=== PATIENT | female | born 1985 | race Caucasian/White ===

== ENCOUNTER 2022-07-04 08:18 | Outpatient (CLI) | payer OTHER, SELFPAY ==
[2022-07-04 08:43] LABS: Hematocrit 28.8 % (37.0-47.0); Hemoglobin 8.7 g/dL (12.0-15.0)
== END 2022-07-04 08:19 | disposition home or self-care (01) ==
LOC: ANHSURGERY 08:26
PROVIDERS: Anesthesiology; PCP Family Medicine; Visit Provider Obstetrics & Gynecology Gynecology
DX: D64.9 Anemia, unspecified (principal); Z01.818 Encounter for other preprocedural examination
CPT/HCPCS: 36415; 85014; 85018

== ENCOUNTER 2022-07-16 02:01 | Day surgery (SDC) | payer OTHER, SELFPAY ==
[2022-07-03 15:51] VITALS: BMI 41.0
--- NOTE | 2022-07-03 16:01 | PC.NURSE ---
Report to the Outpatient Waiting Room, entrance under the green pavilion located off [facility], at time 7:00 on date 07/16/22. Planned Procedure Time: 9:00. Time changes happen often and if your time is changed the preop area will call you the afternoon before. - You and your visitor will be asked to self-screen and do not enter if you have any COVID symptoms. - Only one visitor is requested with a max of two and NO children visitors are allowed at this time. - The patient visitor may be requested to leave or wait in car when not with patient due to distancing restrictions. - A mask is optional within the hospital at this time. Patients may have clear liquids (water, carbonated beverages, clear teas, apple juice) until 3 hours prior to surgery with a maximum of 20 ounces. - No food from midnight until time of surgery Take the following medications with a SIP of water the morning of surgery: ACYCLOVIR, INHALERS, BUSPIRONE, LEVOTHYROXINE, SERTRALINE DO NOT STOP ANY OF YOUR OTHER PRESCRIPTION MEDICATIONS PRIOR TO SURGERY EXCEPT THE FOLLOWING Medications to discontinue per physician: VITAMINS/SUPPLEMENTS Date to take last dose: 07/12/[address] SMITH REGARDING ASPIRIN AND XARELTO Please no make-up, nail greek, hairspray, perfume, deodorant, or body powder the day of surgery. No jewelry (including any body piercings) or valuables the day of surgery, leave them at home. Please take a shower or bath the night before, or the morning of, surgery with an antibacterial soap. Wear comfortable, loose fitting clothing. - Jewelry must be removed prior to entering the operating room. Rings and piercings that are not removed may be cut off. - The hospital will not accept responsibility for valuables. - Please leave all valuables, including medications, at home the day of surgery. If you are going home after surgery, a licensed driver/guide must drive you home. - NO public transportation without another adult if you receive anesthesia. - We recommend that an adult stay with you for 24 hours following discharge. - We also recommend that you do not drive, make important decision, drink alcoholic beverages, or take any drugs that were not prescribed by your health care provider for at least 24 hours after your discharge time. Follow any additional instructions given to you from your surgeon. If you or anyone in your household have experienced Covid symptoms in the past week, please notify your surgeon or the nurse liaison at the phone number below for possible testing. Telephone instructions given to SETH LANDRY and asked if any additional questions and then verbalized understanding. Patient advised to call surgeon office or pre surgery nurse liaison [phone] if any additional questions.
[2022-07-16 07:03] VITALS: BP 116/77; PULSE 79; RESP 16; TEMP 36.7; O2SAT 99
[2022-07-16] MEDS: LACTATED RINGERS 1,000 ML 30 ML IV CONT (07:15)
[2022-07-16] MEDS: ACETAMINOPHEN 500 MG TABLET 1000 MG PO (07:18)
--- NOTE | 2022-07-16 07:35 | WPDHPUPDATE1 ---
History and Physical Update Update Date/Time: 07/16/22 07:35 History and Physical has been reviewed, including an updated exam of the patient. There are NO changes in the patient's condition. Risks, benefits, and alternatives have been discussed and questions answered. Patient agrees to proceed with procedure.
--- NOTE | 2022-07-16 07:35 | PM.HPGS ---
History of Present Illness History of Present Illness Consent: Risks, benefits, and alternatives have been discussed and questions answered. Patient agrees to proceed with procedure. Chief complaint: Menorrhagia Narrative: Mary Velasquez is a 37 year old female patient with heavy menstrual cycles. Both brands of progesterone only pills were not successful in controlling the bleeding. Bleeding problems began when the patient started on blood thinners secondary to a stroke. It was recommended to proceed with D&C hysteroscopy to evaluate the endometrium. Risks of infection, bleeding, perforation, and possible pathology are reviewed. Patient voices understanding and agrees to proceed. Review of Systems Review of Systems: not repeated day of surgery; patient states no changes in status [facility] Past Medical History Medical History (Updated 07/16/22 @ 07:41 by Nancy Sawant MD) Anxiety Asthma Factor 5 Leiden mutation, heterozygous History of depressed bipolar disorder Hypothyroid (normal spontaneous vaginal delivery) complicated by gestational diabetes insulin requiring Patent foramen ovale Stroke Surgical History Surgical History (Updated 07/16/22 @ 07:40 by Nancy Sawant MD) History of hysteroscopy 2020 benign History of laparoscopic cholecystectomy History of tonsillectomy Social History Social History Smoking status: Never smoker Alcohol intake: never Substance use: never Substance use type: does not use Living arrangements: with family Spiritual care concerns: No Meds Home Medications and Allergies Home Medications Medication Instructions Recorded Confirmed Type acyclovir 400 mg tablet 400 mg PO BID 07/03/22 07/16/22 History albuterol sulfate 90 mcg/actuation 2 inh inhalation Q4H PRN 07/03/22 07/16/22 History aerosol inhaler Bronchospasm aspirin 81 mg chewable tablet 81 mg PO DAILY 07/03/22 07/16/22 History atorvastatin 40 mg tablet 40 mg PO HS 07/03/22 07/16/22 History budesonide-formoterol HFA 80 2 inh inhalation BID 07/03/22 07/16/22 History mcg-4.5 mcg/actuation aerosol inhaler (Symbicort) buspirone 10 mg tablet 10 mg PO BID 07/03/22 07/16/22 History ferrous sulfate 325 mg (65 mg 325 mg PO DAILY 07/03/22 07/16/22 History iron) tablet (Iron (ferrous sulfate)) levothyroxine 25 mcg tablet 25 mcg PO DAILY 07/03/22 07/16/22 History rivaroxaban 20 mg tablet (Xarelto) 20 mg PO DAILY 07/03/22 07/16/22 History sertraline 25 mg tablet 25 mg PO DAILY 07/03/22 07/16/22 History Allergies Allergy/AdvReac Type Severity Reaction Status Date / Time lamotrigine Allergy Intermediate hives Verified 07/16/22 07:32 Estrogens AdvReac Other Verified 07/16/22 07:32 Exam Const: General: healthy appearing and alert Orientation/consciousness: patient oriented x3 Resp: Effort & Inspection: normal respiratory effort GI: GI Palp: Yes Soft to palpation, No Tenderness to palpation present (GI) and No Palpable mass present : External Female Exam: normal external appearance Speculum Exam - Vagina: normal appearance of the vagina and normal vaginal discharge Speculum Exam - Cervix: normal appearance of the cervix Bimanual exam- vagina & uterus: uterine size normal and consistency normal Bimanual Exam- Adnexa, other: normal adnexae and No adnexal tenderness Neuro: General: patient oriented x3 Assessment and Plan Assessment and plan (1) Menorrhagia: Code(s): N92.0 - Excessive and frequent menstruation with regular cycle Status: Acute Assessment and Plan: plan to proceed with D&C hysteroscopy
[2022-07-16 07:55] LABS: Beta HCG Quantitative < 2.39 mIU/ML
--- NOTE | 2022-07-16 08:28 | WPDANESEPPF ---
Anes - Initial Pre Proc Eval Procedure: Operation Date: 07/16/22 09:00 Proposed Procedures p Hysteroscopy Dilation and Curettage - Nancy Sawant MD Date/Time: 07/16/22 08:28 Surgeon: Nancy Sawant MD Pre Op Diagnosis: Menorrhagia Patient Data Age: 37 Gender: F Height: 1.75 m Weight: 116.8 kg Last Vital Signs Temp 36.7 C 07/16/22 07:03 Pulse 79 07/16/22 07:03 Resp 16 07/16/22 07:03 BP 116/77 07/16/22 07:03 Pulse Ox 99 07/16/22 07:03 O2 Del Method Room Air 07/16/22 07:03 Allergies Allergy/AdvReac Type Severity Reaction Status Date / Time lamotrigine Allergy Intermediate hives Verified 07/16/22 07:32 Estrogens AdvReac Other Verified 07/16/22 07:32 Home Medications Medication Instructions Recorded Confirmed Type acyclovir 400 mg tablet 400 mg PO BID 07/03/22 07/16/22 History albuterol sulfate 90 mcg/actuation 2 inh inhalation Q4H PRN 07/03/22 07/16/22 History aerosol inhaler Bronchospasm aspirin 81 mg chewable tablet 81 mg PO DAILY 07/03/22 07/16/22 History atorvastatin 40 mg tablet 40 mg PO HS 07/03/22 07/16/22 History budesonide-formoterol HFA 80 2 inh inhalation BID 07/03/22 07/16/22 History mcg-4.5 mcg/actuation aerosol inhaler (Symbicort) buspirone 10 mg tablet 10 mg PO BID 07/03/22 07/16/22 History ferrous sulfate 325 mg (65 mg 325 mg PO DAILY 07/03/22 07/16/22 History iron) tablet (Iron (ferrous sulfate)) levothyroxine 25 mcg tablet 25 mcg PO DAILY 07/03/22 07/16/22 History rivaroxaban 20 mg tablet (Xarelto) 20 mg PO DAILY 07/03/22 07/16/22 History sertraline 25 mg tablet 25 mg PO DAILY 07/03/22 07/16/22 History Laboratory Tests 07/16/22 07:17 Beta HCG, Quant < 2.39 mIU/ML mIU/ML Patient hx anesthesia problems: none Family hx anesthesia problems: none Results Review: All pre-operative results and documents have been reviewed as part of the pre-operative evaluation. [facility] Past Medical History Medical History Anxiety Asthma Factor 5 Leiden mutation, heterozygous History of depressed bipolar disorder Hypothyroid (normal spontaneous vaginal delivery) complicated by gestational diabetes insulin requiring Patent foramen ovale Stroke Surgical History Surgical History History of hysteroscopy 2020 benign History of laparoscopic cholecystectomy History of tonsillectomy Social History Social History Smoking status: Never smoker Alcohol intake: never Substance use: never Substance use type: does not use Living arrangements: with family Spiritual care concerns: No Anes - Eval Final PreProcedure Day of Procedure 07/16/22 08:28 Patient weight: obese Heart: regular rate and rhythm Lungs: clear to auscultation Airway: Mallampati scale class II Neurological: hemiparesis Last oral intake: >/= 8 hours ASA classification: III Emergent: no Anesthetic plan: proceed Anesthesia type and monitoring: general GIVS and standard monitoring Results Review: All pre-operative results and documents have been reviewed as part of the pre-operative evaluation. Informed Consent: The patient's anesthetic plan and its attendant risks and benefits were discussed with the patient/family/POA. Questions were solicited and answers provided to the satisfaction of the patient/family/POA.
[2022-07-16] MEDS: LIDOCAINE HCL 1% LOCAL INJ 20 ML VIAL INFILTRATE (09:26)
--- NOTE | 2022-07-16 09:36 | W.PM.PROC2 ---
Procedure Note - Detailed Date of Procedure 07/16/22 Pre-op Diagnosis Menorrhagia Post-op Diagnosis Same Procedure Performed D&C hysteroscopy Surgeon Nancy Swaant MD Anesthesia MAC and Local Findings uterus sounds to 10cm and appears grossly Description of Procedure The patient is taken to the operating room and placed under anesthesia in the dorsal lithotomy position. She was prepped and draped in usual sterile fashion. The bivalve speculum was placed in the vagina and the cervix grasped on the anterior lip with a tenaculum. The uterus sounded to 10cm. The hysteroscope was placed with the above-stated findings. With no abnormalities noted the hysteroscope was removed. The sharp curette is used to curette the endometrium until a good uterine cry was noted in all areas. All instruments were then removed. Sponge, needle, and instrument counts are correct per the OR staff. The patient is awakened from anesthesia and taken to recovery in stable condition. Estimated Blood Loss 5 Drains No Packing No Pathology Yes ( Endometrial curettings) Complications No immediate complications Condition Stable Disposition PACU
[2022-07-16 09:42] VITALS: BP 120/87; PULSE 87; RESP 12; O2SAT 93
[2022-07-16 10:10] VITALS: BP 110/69; PULSE 75; RESP 14; O2SAT 99
[2022-07-16] MEDS: oxyCODONE HCL (*CRX) 5 MG TAB IR PO (10:26)
[2022-07-16 10:40] VITALS: BP 107/70; PULSE 72; RESP 14
== END 2022-07-16 10:59 | disposition home or self-care (01) ==
PROVIDERS: Anesthesiology; PCP Family Medicine; Visit Provider Obstetrics & Gynecology Gynecology
PROC: 0U5B8ZZ Destruction of Endometrium, Via Natural or Artificial Opening Endoscopic (ICD-10-PCS; CPT 58563; principal; 2022-07-16 09:00)
DX: N92.0 Excessive and frequent menstruation with regular cycle (principal); D68.51 Activated protein C resistance; J45.909 Unspecified asthma, uncomplicated; F41.9 Anxiety disorder, unspecified; E03.9 Hypothyroidism, unspecified; Q21.12 Patent foramen ovale; Z86.73 Personal history of transient ischemic attack (TIA), and cerebral infarction without residual deficits; E66.9 Obesity, unspecified; Z68.38 Body mass index [BMI] 38.0-38.9, adult; Z79.51 Long term (current) use of inhaled steroids; Z79.82 Long term (current) use of aspirin; Z79.01 Long term (current) use of anticoagulants
CPT/HCPCS: 58558; 36415; 84702; 85014; 85018; 88305; A9270; J2250; J2704; J3010; J7120

== ENCOUNTER 2022-09-27 15:24 | Outpatient (CLI) | payer OTHER, SELFPAY ==
[2022-09-27 15:57] LABS: Hematocrit 31.1 % (37.0-47.0); Hemoglobin 9.4 g/dL (12.0-15.0); Mean Corpuscular HGB Conc 30.2 g/dl (32-36); Mean Corpuscular Hemoglobin 26.6 pg (26-34); Mean Corpuscular Volume 87.9 fl (80-100); Mean Platelet Volume 11.5 fl (7.4-10.4); Platelet Count Result 291 k/mm3 (150-375); Red Blood Count 3.54 M/mm3 (4.2-5.4); Red Cell Distribution Width 14.3 % (11.5-14.5); White Blood Count 6.2 K/mm3 (4.5-10.0)
== END 2022-09-27 15:25 | disposition home or self-care (01) ==
LOC: ANHLAB 15:30
PROVIDERS: PCP Family Medicine; Visit Provider Obstetrics & Gynecology Gynecology
DX: N92.1 Excessive and frequent menstruation with irregular cycle (principal)
CPT/HCPCS: 36415; 85027